=== PATIENT | male | born 1960 | race Caucasian/White ===

== ENCOUNTER 2024-03-08 22:06 | Emergency (ER) | payer SELFPAY ==
[2024-03-08 22:44] VITALS: PULSE 103; RESP 20; TEMP 98.2; BMI 17.8
[2024-03-08 23:46] LABS: BASO % 0.3 % (0-2.0); EOS % 0.1 % (0-4.5); HEMOGLOBIN 14.2 GM/dL (11.7-16.9); LYMPH % 14.2 % (8-40); MCH 30.3 pg (25.7-33.7); MCHC 33.8 g/dl (32.0-35.9); MEAN CELL VOLUME 89.6 fl (80-96); MEAN PLT VOLUME 9.1 fl (7.5-11.1); MONO % 9.5 % (3.8-10.2); NEUT % 75.9 % (42.8-82.8); PLATELET COUNT 224 10^3/uL (134-434); RBC 4.68 M/mm3 (4.00-5.60); RDW 12.9 % (11.9-15.9); WHITE BLOOD COUNT 9.3 K/mm3 (4.0-10.0)
[2024-03-08] MEDS ORDERED: VALSARTAN 80 MG TABLET ONE (23:52)
[2024-03-08] MEDS: VALSARTAN 160 MG TABLET PO ONE (23:57)
[2024-03-09 00:03] LABS: INR 1.11 (0.83-1.09); PROTHROMBIN TIME (PATIENT) 12.7 SEC (9.7-13.0)
[2024-03-09 00:06] LABS: ACTIVATED PTT 31.1 SECONDS (25.2-36.5)
[2024-03-09] MEDS ORDERED: SIMETHICONE 40 MG/0.6 ML BOTTLE PO PRN (00:55)
[2024-03-09 01:12] LABS: POTASSIUM 3.9 mmol/L (3.5-5.1)
[2024-03-09 01:15] LABS: ALBUMIN 3.9 g/dl (3.4-5.0); BLOOD UREA NITROGEN 15.3 mg/dL (7-18)
[2024-03-09 01:18] LABS: CREATININE 1.3 mg/dL (0.55-1.3)
[2024-03-09 01:19] LABS: TOT PROT 7.8 g/dl (6.4-8.2)
[2024-03-09] MEDS ORDERED: hydrALAZINE HCL 20 MG/ML VIAL IVPUSH PRN (02:15)
[2024-03-09 03:04] VITALS: BP 213/123
[2024-03-09] MEDS ORDERED: VALSARTAN 160 MG TABLET PO ONE (08:00)
[2024-03-09] MEDS ORDERED: amLODIPine BESYLATE 5 MG TABLET (FP) PO ONE (08:00)
== END 2024-03-09 03:16 | disposition left against medical advice (07) ==
LOC: JER 22:06
DX: K92.2 Gastrointestinal hemorrhage, unspecified (principal); I10 Essential (primary) hypertension
CPT/HCPCS: 36415; 74177-TC; 80053; 82272; 84484; 85025; 85610; 85730; 86850; 86900; 86901; 93005; 93010; 99285-25; Q9967